=== PATIENT | male | born 1950 | race Caucasian/White ===

== ENCOUNTER → 2018-11-11 | Outpatient (CLI) | payer BC ==
--- NOTE | 2018-11-13 12:25 | SLEEP ---
DATE OF STUDY: 11/11/2018 HOME SLEEP STUDY ATTENDING PHYSICIAN: Anshul Lassiter MD Josiah is a 68-year-old, who weighs 195 pounds with a BMI of 27.2. The patient's Megargel score was 11. The patient underwent home sleep study performed by [facility]. Total recording time was 429 minutes. During the night study, the patient had 4 obstructive apneas, 119 mixed apneas, 50 hypopneas and no central apneas. The patient's apnea-hypopnea index was 24 per hour. Nocturnal oximetry study revealed a mean oxygen saturation of 92% with the lowest of 82%. 31 minutes were spent in oxygen saturation less than 90%. Mean heart rate 70 beats per minute. IMPRESSION: 1. Moderate sleep apnea-hypopnea syndrome at an AHI of 24 per hour. 2. Nocturnal hypoxia secondary MADHAVI. RECOMMENDATIONS: 1. The patient would benefit from treatment of sleep apnea with CPAP. This can be done as in-lab CPAP titration study versus home auto-titration study. 2. Once the patient is optimally treated, then follow up in 4-6 weeks to assess compliance and to document clinical improvement. 3. Weight loss to the ideal body weight is recommended. 4. Avoid INJECTION MOLDING MACHINE SETTER depressants. 5. Caution regarding driving until symptoms of sleep apnea resolved with the use of CPAP. JAMIL EMMANUEL MD DR: CHRYSTAL/harrison JOB#: [id number] / [id number] ANSHUL Mcqueen MD
== END | disposition home or self-care (01) ==
LOC: RT 06:51
PROVIDERS: ATTEND Family Medicine
DX: G47.33 Obstructive sleep apnea (adult) (pediatric) (principal); G47.34 Idiopathic sleep related nonobstructive alveolar hypoventilation
CPT/HCPCS: G0399

== ENCOUNTER → 2021-02-25 | Outpatient (CLI) | payer BC ==
[~2021-02-25] MED LIST: BRIN10DR EACHEYE; BUPR300T3 PO; DOCU100C28 PO; HYDR-2759 PO; HYDR-2761 PO; IBUP-1060 PO; METH-561 PO; MONT10TA49 PO; MULT-681 PO; NETA2.5D EACHEYE; OLME5TAB4 PO; OMEP40CA7 PO; SENN8.6T99 PO; TRAV5DRO EACHEYE; [UNRECOGNIZED DRUG - CODE] PO
== END ==
LOC: LAB 10:18
PROVIDERS: ATTEND Surgery
DX: Z01.812 Encounter for preprocedural laboratory examination (principal); U07.1 COVID-19; K42.9 Umbilical hernia without obstruction or gangrene
CPT/HCPCS: U0003; U0005

== ENCOUNTER 2021-03-03 04:38 | Emergency (ER) | payer BC ==
[~2021-03-03] VITALS: Ht 180.3 cm; Wt 88.0 kg
[~2021-03-03 04:38] MED LIST changes: -HYDR-2759 PO; -HYDR-2761 PO
--- NOTE | 2021-03-03 04:44 | PHYS DOC ---
Past Medical History Past Medical History: Asthma, GERD, Glaucoma, Hypertension Past Medical History COVID(+) (NARESH SEGURA DO) Past Surgical History: Other Additional Past Surgical Histo: Cataract, left ankle surgery (NARESH SEGURA DO) Smoking Status: Never Smoker Alcohol Use: None Drug Use: None (NARESH SEGURA DO) General Adult EDM: Chief Complaint: ABDOMINAL PAIN HPI: HPI: Mr. Zhu is a 70 yo male with PMH of HTN, GERD and umbilical hernia who presents with RUQ abdominal pain. Patient states the pain started this morning at 3 am waking him from sleep. The pain is localized in the RUQ and radiates toward the back and at times in the RLQ. He rates the pain a 7/10 at baseline and 10/10 during exacerbation. In addition to the abdominal pain patient has experienced to episodes of wretching and vomiting (yellow in color). Patient's last bowel movement was yesterday morning and he has been passing gas. He denies any hematochezia, jaundice, fever, chills and hematuria but admits to strong history of kidney stones. In addition patient has not undergone any abdominal surgeries. Patient is COVID positive since Sunday. (NARESH SEGURA DO) Review of Systems: Review of Systems: Constitutional: Denies fever or chills Eyes: Denies redness or eye pain HENT: Denies nasal congestion or sore throat Respiratory: Denies cough or shortness of breath Cardiovascular: Denies chest pain or palpitations GI: Endorses RUQ abdominal pain, vomiting, denies hematochezia : Denies dysuria or hematuria Musculoskeletal: Reports back pain; denies joint pain Integument: Denies rash or skin lesions Neurologic: Denies headache, focal weakness or sensory changes Complete systems were reviewed and found to be within normal limits, except as documented in this note. (NARESH SEGURA DO) Heart Score: C/O Chest Pain: N/A (NARESH SEGURA DO) Family History: Family History: Kidney stones- all 4 children (NARESH SEGURA DO) Allergies: Allergies: Allergies Coded Allergies Type Severity Reaction Last Updated Verified Penicillins Allergy Intermediate Swelling 02/25/21 Yes (NARESH SEGURA DO) Physical Exam: PE: Constitutional: Well developed, well nourished, no acute distress, non-toxic appearance HENT: Normocephalic, atraumatic Eyes: Conjunctiva normal, no discharge Neck: Normal range of motion, no tenderness, supple Lungs & Thorax: No respiratory distress, equal chest rise and fall Abdomen: Soft, normoactive bowel sounds, RUQ and RLQ tenderness upon light palpation Skin: Warm, dry, no erythema, no rash Back: No tenderness, no CVA tenderness Extremities: No tenderness, ROM intact, no edema Neurologic: Alert and oriented X 3, normal motor function, normal sensory function, no focal deficits noted Psychologic: Affect normal, judgment normal (NARESH SEGURA DO) EKG: EKG: @05:04 Normal sinus rhythm, Regular Rate (65bpm), QRS 98ms, QT/QTC 370/389; J point elevations in leads II, III, aVF and V3, No ST segment elevations (NARESH SEGURA DO) Radiology/Procedures: Radiology/Procedures: PROCEDURE: CT CHEST ABD PELVIS W/CONTRAST CT CHEST+ABD+PELVIS W History: Abdominal pain. Covid. Technique: CT of the chest, abdomen and pelvis were performed with intravenous contrast. Coronal and sagittal reconstructions were performed. Exposure: One or more of the following individualized dose reduction techniques were utilized for this examination: 1. Automated exposure control 2. Adjustment of the mA and/or kV according to patient size 3. Use of iterative reconstruction technique. Comparison: None Findings: Chest: No aortic aneurysm or dissection. Mild atheromatous plaque within the aorta. No pathologic lymphadenopathy. No consolidation or pleural effusion. No pneumothorax. 2 mm right upper lobe pulmonary nodules (series 2 image 13). Additional small right upper lobe pulmonary nodules. Elongated the right middle lobe fissure- based nodule measures 5 mm (image 41). Calcified mediastinal lymph nodes and calcified left lower lobe pulmonary nodule, likely prior granulomatous disease. Coronary artery calcifications. Abdomen and pelvis: Left hepatic lobe hypodensity measures 0.7 cm. The spleen, adrenal glands, pancreas and gallbladder are unremarkable. No biliary ductal dilatation. Patent portal vein. No renal calculus. Right superior renal cyst measures 1.4 cm. No hydronephrosis. Normal appearance of the urinary bladder. Colonic diverticulosis. Normal appendix. No evidence of bowel obstruction. No pathologic lymphadenopathy. No ascites. Fat-containing umbilical hernia. Mild atheromatous plaque within the nonaneurysmal abdominal aorta and branch vessels. Bones: Multilevel lumbar spondylosis most prominent L5-S1. Impression: Chest CT: 1. No acute thoracic pathology. 2. Small pulmonary nodules. Recommend one-year follow-up chest CT without contrast if high risk. 3. Coronary artery calcifications. Abdomen and pelvis CT: 1. No acute abdominal or pelvic pathology. 2. Small left hepatic lobe hypodensity, likely cyst or hemangioma. 3. Colonic diverticulosis. Electronically signed by: Porfirio Parker DO (03/03/2021 6:00 AM) [facility] (NARESH SEGURA DO) Course & Med Decision Making: Course & Med Decision Making Mr. Zhu is a 70 yo male with PMH of HTN, GERD and umbilical hernia who presents with RUQ abdominal pain. Upon further evaluation, A CBC with diff, CMP, EKG, CT abdomen without contrast and UA were ordered. EKG results showed normal sinus rhythm, regular rate (65bpm) with J point elevations on leads V2 and V3. Taking into consideration his current symptoms and family history, there is a concern for kidney stones; currently awaiting imaging results. Liver enzyme were within normal limits. Patient will be transferred to Dr. Gorman at 6:00 for further evaluation and final disposition. Pertinent Labs and Imaging studies reviewed. (See chart for details) CT with signs of nonspecific pulmonary nodule without other significant abnormalities. A copy of CT results provided to patient to give to PCP for future re-evaluation of pulmonary nodule. UA still pending at time of sign out. Discussed current findings and plan with patient, who acknowledges understanding and agreement. (NARESH SEGURA DO) Course & Med Decision Making Patient has negative CT imaging and laboratory and urinalysis did not show any acute pathology. Patient's pain has completely resolved the emergency department however I told him that I do not have a definitive etiology to his symptoms at this point and I would like to repeat a troponin but he refused doing that he is completely asymptomatic and wants to go home. Certainly this could have been gastritis or ulcer based off his upper abdominal pain radiating straight through to his back. Patient said that he would rather go home and follow-up as an outpatient. Given patient appears well with normal vital signs benign physical exam work-up he will be discharged in stable condition. He excepted the risks of and disability by not having full cardiac work-up. Patient aware and agreeable with plan for discharge and verbalized understanding of the above instructions and the need for short-term PCP follow-up in 2 to 3 days and strict ED return precaution discussed worsening pain fevers vomiting or other general concerns. (KITTY GORMAN DO) Dragon Disclaimer: Dragniels Disclaimer: This electronic medical record was generated, in whole or in part, using a voice recognition dictation system. (NARESH SEGURA DO) Departure Departure Impression: Primary Impression: Abdominal pain Qualified Codes: R10.11 - Right upper quadrant pain Additional Impressions: Pulmonary nodule History of COVID-19 Disposition: 01 HOME / SELF CARE / HOMELESS Condition: IMPROVED Referrals: ANSHUL FLORENTINO MD (PCP) Patient Instructions: Abdominal Pain NARESH SEGURA DO Mar 03, 2021 04:44 KITTY GORMAN DO Mar 03, 2021 08:58
[2021-03-03] MEDS ORDERED: FAMOTIDINE 20 MG/2 ML VIAL IVP ONE ×2 (04:45→05:00)
[2021-03-03] MEDS ORDERED: KETOROLAC 30 MG/ML VIAL. IVP ONE (05:00)
[2021-03-03] MEDS ORDERED: IV NORMAL SALINE 1000ML BAG 1,000 ML IV ONE (05:00)
[2021-03-03] MEDS ORDERED: ONDANSETRON PF 4 MG/2 ML VIAL. IVP ONE (05:00)
[2021-03-03 05:06] LABS: BASO % 1 % (0-3); EOS # 0.1 x10^3/uL (0.0-0.7); EOS % 2 % (0-3); HEMATOCRIT 47.1 % (39.0-53.0); HEMOGLOBIN 15.5 g/dL (13.0-17.5); LYMPH # 1.6 x10^3/uL (1.0-4.8); LYMPH % 23 % (24-48); MEAN CORPUSCULAR HEMOGLOBIN 29 pg (25-35); MEAN CORPUSCULAR HGB CONC 33 g/dL (31-37); MEAN CORPUSCULAR VOLUME 89 fL (79-100); MONO # 0.6 x10^3/uL (0.0-1.1); MONO % 9 % (0-9); NEUT # 4.6 x10^3/uL (1.8-7.7); NEUT % 66 % (31-73); PLATELET COUNT 239 x10^3/uL (140-400); RED BLOOD COUNT 5.28 x10^6/uL (4.30-5.70); RED CELL DISTRIBUTION WIDTH 13.7 % (11.5-14.5)
[2021-03-03 05:14] LABS: CALCIUM 9.1 mg/dL (8.5-10.1); GFR 74.3; POTASSIUM 3.9 mmol/L (3.5-5.1)
[2021-03-03] MEDS ORDERED: CONTRAST GIVEN. MC PRN (05:15)
--- NOTE | 2021-03-03 05:16 | EKG ---
[facility] [address] [place] [address] Test Date: 2021-03-03 Test Time: 05:04:54 Pat Name: NINI MALDONADO Department: Room: Gender: M Community Resource Consultant: : 1950 Requested By: NARESH SEGURA Order Number: [id number] Reading MD: Helio Shields Measurements Intervals [place] Rate: 65 P: -56 DC: 140 QRS: 64 QRSD: 88 T: 76 QT: 370 QTc: 389 Interpretive Statements SINUS RHYTHM LOW LIMB LEAD VOLTAGE NON SPECIFIC ST CHANGES Electronically Signed On 03-05-2021 16:23:50 VETERINARY EPIDEMIOLOGIST by Helio Shields
[2021-03-03 05:22] LABS: ALBUMIN 3.5 g/dL (3.4-5.0); ALBUMIN/GLOBULIN RATIO 0.9 (1.0-1.7); MAGNESIUM 2.3 mg/dL (1.8-2.4); TOTAL BILIRUBIN 0.6 mg/dL (0.2-1.0); TOTAL PROTEIN 7.4 g/dL (6.4-8.2)
[2021-03-03] MEDS ORDERED: IOHEXOL 300 MG/ML 100ML VIAL. IV ONE (05:30)
--- NOTE | 2021-03-03 06:02 | RAD ---
CT CHEST+ABD+PELVIS W History: Abdominal pain. Covid. Technique: CT of the chest, abdomen and pelvis were performed with intravenous contrast. Coronal and sagittal reconstructions were performed. Exposure: One or more of the following individualized dose reduction techniques were utilized for thi s examination: 1. Automated exposure control 2. Adjustment of the mA and/or kV according to patient size 3. Use of iterative reconstruction technique. Comparison: None Findings: Chest: No aortic aneurysm or dissection. Mild atheromatous plaque within the aorta. No pathologic lym phadenopathy. No consolidation or pleural effusion. No pneumothorax. 2 mm right upper lobe pulmonary nodules (series 2 image 13). Additional small right upper lobe pulmon shelley nodules. Elongated the right middle lobe fissure-based nodule measures 5 mm (image 41). Calcified mediastinal lymph nodes and calcified left lower lobe pulmonary nodule, likely prior granulomatous d isease. Coronary artery calcifications. Abdomen and pelvis: Left hepatic lobe hypodensity measures 0.7 cm. The spleen, adrenal glands, pancre as and gallbladder are unremarkable. No biliary ductal dilatation. Patent portal vein. No renal calculus. Right superior renal cyst measures 1.4 cm. No hydronephrosis. Normal appearance of the urinary bladder. Colonic diverticulosis. Normal appendix. No evidence of bowel obstruction. No pathologic lymphadenopa thy. No ascites. Fat-containing umbilical hernia. Mild atheromatous plaque within the nonaneurysmal a bdominal aorta and branch vessels. Bones: Multilevel lumbar spondylosis most prominent L5-S1. Impression: Chest CT: 1. No acute thoracic pathology. 2. Small pulmonary nodules. Recommend one-year follow-up chest CT without contrast if high risk. 3. Coronary artery calcifications. Abdomen and pelvis CT: 1. No acute abdominal or pelvic pathology. 2. Small left hepatic lobe hypodensity, likely cyst or hemangioma. 3. Colonic diverticulosis. Electronically signed by: Porfirio Parker DO (03/03/2021 6:00 AM) [facility]
[2021-03-03] MEDS ORDERED: fentaNYL PF VIAL 100 MCG/2 ML VIAL IV ONE (06:30)
[2021-03-03 07:46] LABS: BILIRUBIN,URINE NEGATIVE (NEG); CLARITY,URINE CLEAR; COLOR,URINE YELLOW; NITRITE,URINE NEGATIVE (NEG); PROTEIN,URINE NEGATIVE (NEG-TRACE); UROBILINOGEN,URINE 0.2 mg/dL (0.2 mg/dL)
[2021-03-03 07:53] LABS: BACTERIA,URINE 0 /HPF (0-FEW); RBC,URINE 0 /HPF (0-2); WBC,URINE 0 /HPF (0-4)
[2021-03-03] MEDS ORDERED: HYDR-2761 PO (08:56)
[2021-03-03 08:58] VITALS: BP 127/73
[2021-03-03] MEDS ORDERED: HYDR-2759 PO (08:59)
== END 2021-03-03 09:08 | disposition home or self-care (01) ==
LOC: ER 04:38
DX: R10.11 Right upper quadrant pain (principal); R91.1 Solitary pulmonary nodule; K57.30 Diverticulosis of large intestine without perforation or abscess without bleeding; J45.909 Unspecified asthma, uncomplicated; K21.9 Gastro-esophageal reflux disease without esophagitis; I10 Essential (primary) hypertension; Z88.0 Allergy status to penicillin
CPT/HCPCS: 36415; 71260; 74177; 80053; 81001; 82553; 83690; 83735; 84484; 85025; 93005; 96361; 96374; 96375; 99285; J1885; J2405; J3490; J7030; Q9967

== ENCOUNTER 2021-03-28 10:19 | Day surgery (SDC) | payer BC ==
[~2021-03-28] VITALS: Ht 179.1 cm; Wt 89.0 kg
[~2021-03-28 10:19] MED LIST changes: +DEXAMETHASONE SOD PHOS 20 MG/5 ML VIAL. ONE; +HYDR-2759 PO; +HYDR-2761 PO; +HYDROmorphone 2 MG/ML INJ. IVP PRN; +IV RINGERS,LACTATED 1000ML 1,000 ML IV SCH; +LIDOCAINE 2% PF 5 ML VIAL. ONE; +MIDAZOLAM HCL/PF 2 MG/2 ML VIAL. ONE; +MORPHINE SULFATE 2 MG/ML INJ. IVP PRN; +PROCHLORPERAZINE 10 MG/2 ML VIAL. IVP PRN; +PROPOFOL 10 MG/ML (20ML) VIAL. IV ONE; +ROCURONIUM 50 MG/5 ML VIAL. ONE; +fentaNYL PF VIAL 100 MCG/2 ML VIAL IVP PRN; +fentaNYL PF VIAL 100 MCG/2 ML VIAL ONE
[2021-03-28 10:57] VITALS: BP 158/84
--- NOTE | 2021-03-28 12:38 | PDOC1 ---
History and Physical Date of Admission Date of Admission DATE: 03/28/21 TIME: 12:36 History of Present Illness History of Present Illness The patient is a 71-year-old male who was referred due to a symptomatic umbilical hernia. He is interested in operative repair. Past Medical History Past Medical History Asthma, depression, reflux disease, hypercholesterolemia, glaucoma Past Surgical History Past Surgical History Retinal surgery, cataracts, colonoscopy, left ankle surgery Social History Smoke: No ALCOHOL: none Current Medications Current Medications Current Medications Fentanyl Citrate (Fentanyl 2ml Vial) 25 mcg PRN Q5MIN PRN IVP MILD PAIN 1-3; Start 03/28/21 at 06:00; Stop 03/29/21 at 05:59 Fentanyl Citrate (Fentanyl 2ml Vial) 50 mcg PRN Q5MIN PRN IVP MODERATE PAIN 4- 6; Start 03/28/21 at 06:00; Stop 03/29/21 at 05:59 Morphine Sulfate (Morphine Sulfate) 1 mg PRN Q10MIN PRN IVP SEVERE PAIN 7-10; Start 03/28/21 at 06:00; Stop 03/29/21 at 05:59 Ringer's Solution 1,000 ml @ 30 mls/hr Q24H IV Last administered on 03/28/21at 11:00; Start 03/28/21 at 06:00; Stop 03/28/21 at 17:59 Hydromorphone HCl (Dilaudid) 0.5 mg PRN Q10MIN PRN IVP SEVERE PAIN 7-10, 2nd CHOICE; Start 03/28/21 at 06:00; Stop 03/29/21 at 05:59 Prochlorperazine Edisylate (Compazine) 5 mg PACU PRN PRN IVP NAUSEA, MRX1; Start 03/28/21 at 06:00; Stop 03/29/21 at 05:59 Levofloxacin/ Dextrose 150 ml @ 100 mls/hr 1X PREOP PRN IV PRIOR TO PROCEDURE; Start 03/28/21 at 06:00; Stop 03/28/21 at 18:00 Active Scripts Active Hydrocodone-Acetamin 5-325 mg (Hydrocodone/Acetaminophen) 1 Each Tablet 1 Each PO Q6-8HRS PRN Reported Benicar (Olmesartan Medoxomil) 5 Mg Tablet 5 Mg PO DAILY Wellbutrin Xl (Bupropion Hcl) 300 Mg Tab.er.24h 300 Mg PO DAILY Methocarbamol 500 Mg Tablet 500 Mg PO PRN BID PRN Omeprazole 40 Mg Capsule.dr 40 Mg PO DAILY Montelukast Sodium Tablet (Montelukast Sodium) 10 Mg Tablet 10 Mg PO DAILY Senokot (Sennosides) 8.6 Mg Tablet 8.6 Mg PO HS Docusate Sodium 100 Mg Capsule 100 Mg PO DAILY Multi-Day Plus Minerals Tablet (Multivitamin-Min/Iron/FA/Vit K) 1 Each Tablet 1 Each PO DAILY Ibuprofen 800 Mg Tablet 800 Mg PO DAILY PRN 8Hr Arthritis Pain (Acetaminophen) 650 Mg Tablet.er 650 Mg PO Q8-12HRS Travatan Z (Travoprost) 5 Ml Drops 1 Drop EACHEYE QHS Rhopressa (Netarsudil Mesylate) 2.5 Ml Drops 1 Drop EACHEYE QHS 30 Days Azopt (Brinzolamide) 10 Ml Drops.susp 1 Drop EACHEYE BID Allergies Allergies: Coded Allergies: Penicillins (Verified Allergy, Intermediate, Swelling, 03/23/21) and hives ROS General: No: Chills, Night Sweats, Fatigue, Malaise, Appetite, Other PSYCHOLOGICAL ROS: No: Anxiety, Behavioral Disorder, Concentration difficultie, Decreased libido, Depression, Disorientation, Hallucinations, Hostility, Irritablity, Memory difficulties, Mood Swings, Obsessive thoughts, Physical ab use, Sexual abuse, Sleep disturbances, Suicidal ideation, Other Eyes: No Blurry vision, No Decreased vision, No Double vision, No Dry eyes, No Excessive tearing, No Eye Pain, No Itchy Eyes, No Loss of vision, No Photophobia, No Scotomata, No Uses contacts, No Uses glasses, No Other HEENT: No: Heacaches, Visual Changes, Hearing change, Nasal congestion, Nasal discharge, Oral lesions, Sinus pain, Sore Throat, Epistaxis, Sneezing, Snoring, Tinnitus, Vertigo, Vocal changes, Other ALLERGY AND IMMUNOLOGY: No: Hives, Insect Bite Sensitivity, Itchy/Watery Eyes, Nasal Congestion, Post Nasal Drip, Seasonal Allergies, Other Hematological and Lymphatic: No: Bleeding Problems, Blood Clots, Blood Transfusions, Brusing, Night Sweats, Pallor, Swollen Lymph Nodes, Other ENDOCRINE: No: Breast Changes, Galactorrhea, Hair Pattern Changes, Hot Flashes, Malaise/lethargy, Mood Swings, Palpitations, Polydipsia/polyuria, Skin Changes, Temperature Intolerance, Unexpected Weight Changes, Other Respiratory: No: Cough, Hemoptysis, Orthopnea, Pleuritic Pain, Shortness of breath, SOB with excertion, Sputum Changes, Stridor, Tachypnea, Wheezing, Other Cardiovascular: No Chest Pain, No Palpitations, No Orthopnea, No Paroxysmal Noc. Dyspnea, No Edema, No Lt Headedness, No Other Gastrointestinal: No Nausea, No Vomiting, No Abdominal Pain, No Diarrhea, No Constipation, No Melena, No Hematochezia, No Other Genitourinary: No Dysuria, No Frequency, No Incontinence, No Hematuria, No Retention, No Discharge, No Urgency, No Pain, No Flank Pain, No Other, No , No , No , No , No , No , No Musculoskeletal: No Gait Disturbance, No Joint Pain, No Joint Stiffness, No Joint Swelling, No Muscle Pain, No Muscular Weakness, No Pain In:, No Swelling In:, No Other Neurological: No Behavorial Changes, No Bowel/Bladder ControlChng, No Confusion, No Dizziness, No Gait Disturbance, No Headaches, No Impaired Coord/balance, No Memory Loss, No Numbness/Tingling, No Seizures, No Speech Problems, No Tremors, No Visual Changes, No Weakness, No Other Skin: No Dry Skin, No Eczema, No Hair Changes, No Lumps, No Mole Changes, No Mottling, No Nail Changes, No Pruritus, No Rash, No Skin Lesion Changes, No Other, No Acne Physical Exam General: Alert, Oriented X3, Cooperative HEENT: Atraumatic Lungs: Clear to auscultation Heart: RRR Abdomen: Soft (Reducible umbilical hernia) Extremities: No clubbing, No cyanosis Skin: No rashes, No breakdown Neuro: Normal speech Vitals Vitals Vital Signs Date Time Temp Pulse Resp B/P (MAP) Pulse Ox O2 Delivery O2 Flow Rate FiO2 03/28/21 10:57 97.4 80 20 97 97.4 03/28/21 10:53 158/84 Room Air VTE Prophylaxis Ordered VTE Prophylaxis Devices: Yes VTE Pharmacological Prophylaxi: No Assessment/Plan Assessment/Plan Plan for umbilical hernia repair. The details and risks of surgery were discussed with the patient. He understands and would like to proceed Justifications for Admission Other Justification TAJ EDUARDO MD Mar 28, 2021 12:38
[2021-03-28] MEDS ORDERED: BUPIVACAINE-EPI 0.5% 30 ML VIAL KIT. ONE (12:50)
[2021-03-28] MEDS ORDERED: BUPIVACAINE-EPI 0.5%-1:200000 MPF 30 ML VIAL. INJ ONE (13:24)
[2021-03-28] MEDS ORDERED: DEXAMETHASONE SOD PHOS 4 MG/ML VIAL ONE (13:26)
[2021-03-28] MEDS ORDERED: SEVOFLURANE 16 TO 30 MINUTES. IH ONE (13:27)
[2021-03-28] MEDS ORDERED: KETOROLAC 30 MG/ML VIAL. ONE (13:34)
[2021-03-28] MEDS ORDERED: ROCURONIUM 50 MG/5 ML VIAL. ONE (13:36)
[2021-03-28] MEDS ORDERED: NEOSTIGMINE METHYLSULFATE 5 MG/5 ML SYRINGE. ONE (13:39)
[2021-03-28] MEDS ORDERED: GLYCOPYRROLATE 1 MG/5 ML VIAL. ONE (13:40)
--- NOTE | 2021-03-28 14:19 | PDOC4 ---
Operative Note Operative Note Operative Note: Preoperative Diagnosis: Umbilical hernia Postoperative Diagnosis: Same Procedure: Umbilical hernia repair with mesh Surgeon: Benjamín Candy Maker Helper: Giorgio Escobar MS4 Anesthesia: General EBL: 10 mL Specimen: None Drains: None Complications: None Indication: The patient is a 71-year-old male who is referred with umbilical hernia. The plan is to proceed with an umbilical hernia repair. The risks of surgery were discussed which include bleeding, infection, recurrence, pain, anesthetic risk, potential need for additional surgery procedure. He understands and would like to proceed. Description: The patient was taken to the operating room and placed supine in the operating table. General anesthesia was performed. The abdomen was prepped with ChloraPrep and draped with sterile towels, sheets, and an Ioban. A curved infraumbilical incision was made in the skin with a scalpel. Cautery dissection was carried down to the fascia. The umbilicus was elevated off the fascia exposing the hernia defect. A preperitoneal plane was developed circumferentially using a combination of cautery and blunt dissection. A medium sized Ventralex ST was then placed in this preperitoneal plane. The mesh was secured to the fascia at the 12, 3, 6, 9:00 positions using 0 Prolene in a horizontal mattress fashion. The fascial edges were closed over the mesh with 0 Prolene. The umbilicus was secured back to the fascia with 0 Vicryl. The subcutaneous tissue was closed with 3-0 Vicryl. Skin was approximated with 4-0 Monocryl and infiltrated with half percent Marcaine with epinephrine. Steri- Strips and a sterile dressing were applied. The patient tolerated the procedure well and was sent to the recovery room in stable condition. At the end the case all counts were correct. TAJ EDUARDO MD Mar 28, 2021 14:19
[2021-03-28] MEDS ORDERED: HYDR-2761 PO (14:21)
--- NOTE | 2021-03-28 14:23 | DISCH ---
DISCHARGE INSTRUCTIONS Condition on Discharge Condition on Discharge: Stable Activity After Discharge Activity Instructions for Disc: Other, see below (no lifting over 20 lbs X 4 weeks, no driving while taking pain meds) Diet after Discharge Diet after Discharge: Regular Wound Incision Care Wound/Incision Care: Other, see below (keep dressing clean and dry X 72 hours, may then remove and shower) Follow-Up Follow up with: Dr Eduardo in 2 weeks in office, call for appointment [phone] TAJ EDUARDO MD Mar 28, 2021 14:23
[2021-03-28] MEDS ORDERED: PROCHLORPERAZINE 10 MG/2 ML VIAL. ONE (14:31)
[2021-03-28] MEDS ORDERED: fentaNYL PF VIAL 100 MCG/2 ML VIAL ONE (14:59)
[2021-03-28] MEDS ORDERED: HYDROcodone/APAP 5/325MG 1 TAB TABLET PO ONE (15:45)
[2021-03-28 16:02] VITALS: BP 136/83
== END 2021-03-28 17:17 | disposition home or self-care (01) ==
LOC: SURG 10:19
PROVIDERS: ATTEND Surgery
DX: K42.9 Umbilical hernia without obstruction or gangrene (principal); J45.909 Unspecified asthma, uncomplicated; E78.00 Pure hypercholesterolemia, unspecified; F32.9 Major depressive disorder, single episode, unspecified; I10 Essential (primary) hypertension; K21.9 Gastro-esophageal reflux disease without esophagitis; M19.90 Unspecified osteoarthritis, unspecified site; Z79.899 Other long term (current) drug therapy; Z98.890 Other specified postprocedural states; Z88.0 Allergy status to penicillin
CPT/HCPCS: 49585; A4364; A4930; A6402; C1781; J0780; J1100; J1885; J1956; J2250; J2704; J2710; J3010; J3490; A4452